=== PATIENT | male | born 1950 | race Caucasian/White ===

== ENCOUNTER → 2018-10-24 | Outpatient (CLI) | payer MEDICARE, OTHER ==
[~2018-10-24] MED LIST: ALBU8.5H8 INH; CALC600T4 PO; CHOL2000 PO; CLOT15CR6 TP; LEVO125T5 PO; MAGN400C PO; OMEG1CAP23 PO; OMEP20TA62 PO; POTA2TAB8 PO; TADA20TA PO; TURM500C4 PO; VITA1CAP PO
== END | disposition home or self-care (01) ==
LOC: STAR 13:09
PROVIDERS: ATTEND Surgery
DX: Z01.818 Encounter for other preprocedural examination (principal)
CPT/HCPCS: 93005

== ENCOUNTER 2018-10-29 05:48 | Day surgery (SDC) | payer MEDICARE, OTHER ==
[~2018-10-29] VITALS: Ht 182.9 cm; Wt 99.0 kg
[2018-10-29] MEDS ORDERED: EPINEPHRINE 1 MG/ML, 1ML ONE (06:14)
[2018-10-29] MEDS ORDERED: BUPIVACAINE/PF 0.5% ONE (06:14)
[2018-10-29] MEDS ORDERED: LACTATED RINGERS 1,000 ML IV SCH (06:23)
[2018-10-29 06:28] VITALS: BP 159/93
[2018-10-29] MEDS ORDERED: FENTANYL PF 250 MCG/5ML ONE (07:15)
[2018-10-29] MEDS ORDERED: MIDAZOLAM 1 MG/ML, 2ML ONE (07:15)
[2018-10-29] MEDS ORDERED: ROCURONIUM 10MG/ML,5ML ONE (07:15)
[2018-10-29] MEDS ORDERED: LIDOCAINE-MPF 2% ,5ML ONE (07:16)
[2018-10-29] MEDS ORDERED: PROPOFOL 10 MG/ML, 20ML ONE (07:16)
[2018-10-29] MEDS ORDERED: PHENYLEPHRINE 10 MG/ML ONE (07:17)
[2018-10-29] MEDS ORDERED: DEXMEDETOMIDINE 200 MCG/2 ML ONE (07:27)
[2018-10-29] MEDS ORDERED: ONDANSETRON 2MG/ML, 2ML ONE ×2 (07:40)
[2018-10-29] MEDS ORDERED: DEXAMETHASONE 4 MG/ML, 1ML ONE ×2 (07:40)
[2018-10-29] MEDS ORDERED: ALBUTEROL SULFATE 2.5 MG/3 ML NPPB PRN (08:00)
[2018-10-29] MEDS ORDERED: OXYcodone 5 MG/5 ML ORAL.SOL UDC PO PRN (08:00)
[2018-10-29] MEDS ORDERED: ACETAMINOPHEN 325 MG TABLET PO PRN (08:00)
[2018-10-29] MEDS ORDERED: FENTANYL PF 100 MCG/2ML IV PRN (08:00)
[2018-10-29] MEDS ORDERED: LABETALOL 5MG/ML, 20ML IV PRN (08:00)
[2018-10-29] MEDS ORDERED: HYDROmorphone 2 MG/ML, 1ML IVPush PRN (08:00)
[2018-10-29] MEDS ORDERED: MEPERIDINE/PF 25MG/0.5ML IVPush PRN (08:00)
[2018-10-29] MEDS ORDERED: HALOPERIDOL 5 MG/ML IV PRN (08:00)
[2018-10-29] MEDS ORDERED: hydrALAzine 20 MG/ML, 1ML IV PRN (08:00)
[2018-10-29] MEDS ORDERED: PROMETHAZINE 25 MG/ML, 1ML IV PRN (08:00)
[2018-10-29] MEDS ORDERED: FENTANYL PF 100 MCG/2ML ONE (08:27)
[2018-10-29] MEDS ORDERED: OXYcodone 5 MG/5 ML ORAL.SOL UDC ONE (08:28)
[2018-10-29] MEDS ORDERED: ACETAMINOPHEN 325 MG TABLET ONE (08:34)
[2018-10-29] MEDS ORDERED: GLYCOPYRROLATE 0.2MG/1ML, 5ML ONE (15:54)
[2018-10-29] MEDS ORDERED: CEFOTETAN 2 GM ONE (15:54)
[2018-10-29] MEDS ORDERED: NEOSTIGMINE 1 MG/ML, 10ML ONE (15:54)
[2018-10-29] MEDS ORDERED: KETOROLAC 30 MG/1 ML ONE (15:54)
== END 2018-10-29 12:10 | disposition home or self-care (01) ==
LOC: OUT 05:48
PROVIDERS: ATTEND Surgery
DX: K43.0 Incisional hernia with obstruction, without gangrene (principal); E03.9 Hypothyroidism, unspecified; J44.9 Chronic obstructive pulmonary disease, unspecified; K21.9 Gastro-esophageal reflux disease without esophagitis; Z98.52 Vasectomy status; Z90.49 Acquired absence of other specified parts of digestive tract; Z98.890 Other specified postprocedural states; Z79.899 Other long term (current) drug therapy; Z88.8 Allergy status to other drugs, medicaments and biological substances
CPT/HCPCS: 49566; 49568; C1729; C1781; J0171; J1100; J1885; J2250; J2370; J2405; J2704; J2710; J3010; J3490; J7120